=== PATIENT | male | born 1965 | race Caucasian/White ===

== ENCOUNTER 2017-01-04 20:55 | Emergency (ER) | payer BC ==
--- NOTE | 2017-01-04 21:28 | DIAGNOSTIC IMAGING REPORT ---
PROCEDURE: XR CHEST 1 VIEW INDICATION: CHEST PAIN TECHNIQUE: Portable AP view (2120 hours). COMPARISON: Compared to chest x-ray on 04/11/2015. FINDINGS: Allowing for suboptimal inspiration, lungs are clear. Heart and mediastinum are normal. Thorax is normal. IMPRESSION: 1. Negative chest.
--- NOTE | 2017-01-04 23:42 | DIAGNOSTIC IMAGING REPORT ---
PROCEDURE: US ABDOMEN ULTRASOUND-LIMITED INDICATION: Right abdominal pain. History of gallstones. TECHNIQUE: Bella scale and color Doppler sonographic images of the abdomen were obtained. COMPARISON: Compared to CT abdomen and pelvis on 04/11/2015. FINDINGS: Moderate distention of the gallbladder with biliary sludge and an 8 mm mobile gallstone. No evidence of gallbladder wall thickening. Common duct is normal (4 mm). Portions of the liver are seen with moderate fatty infiltration. Pancreas is obscured by bowel gas. Right kidney is normal. IMPRESSION: 1. Cholelithiasis (8 mm mobile gallstone) with moderate distention of the gallbladder associated biliary sludge. Findings suggest gallbladder dysfunction and/or cholecystitis (acute or chronic). 2. Moderate fatty infiltration of the liver. 3. Findings discussed with Dr. Eric Yan.
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
--- NOTE | 2017-01-05 01:53 | ED ORDER SUMMARY ---
..... Patient: JULIET SHETTY OrderSheet [facility] VisitID: [id number] [address] [place] [address] 51y, M Registration Date/Time: 01/04/2017 ORDER SHEET Weight: 89.8 kg (stated) Allergies: No Known Drug Allergy GENERAL ORDERS: Chest 1V Urgent (21:01/04/2017 Kalen BARON) (Ack 21:16 Aziza) (21:21 Skylarne R.N.) Manager Drug Safety (Continuous) (21:01/04/2017 Kalen BARON) (21:21 Skylarne R.N.) CBC w Diff Urgent (21:01/04/2017 Kalen BARON) (Ack 21:15 Aziza) (21:28 Skylarne R.N.) CMP Urgent (21:01/04/2017 Kalen BARON) (Ack 21:15 Aziza) (21:28 TJayne R.N.) UA-Culture if indicated Urgent (21:01/04/2017 Kalen BARON) (Ack 21:16 Aziza) (2:38 RCollier R.N.) PT with INR Urgent (21:01/04/2017 Kalen BARON) (Ack 21:16 Aziza) (21:28 Skylarne R.N.) PTT Urgent (21:01/04/2017 Kalen BARON) (Ack 21:16 Aziza) (21:28 TJayne R.N.) D-Dimer Urgent (21:01/04/2017 Kalen BARON) (Ack 21:16 Aziza) (21:28 BARTOLOayne R.N.) Amylase Urgent (21:01/04/2017 Kalen BARON) (Ack 21:16 Aziza) (21:28 BARTOLOayne R.N.) Lipase Urgent (21:01/04/2017 Kalen BARON) (Ack 21:16 Aziza) (21:28 Skylarne R.N.) CPK Urgent (21:01/04/2017 Kalen BARON) (Ack 21:16 Aziza) (21:28 Derrick R.N.) Troponin-I Urgent (21:09 01/04/2017 Kalen BARON) (Ack 21:16 Aziza) (21:28 Skylarne R.N.) BNP Urgent (21:09 01/04/2017 Kalen BARON) (Ack 21:16 Aziza) (21:28 Skylarne R.N.) Oxygen (2 L/min) (NC) (21:09 01/04/2017 Kalen BARON) (22:19 Víctors R.N.) EKG - ER Stat (21:09 01/04/2017 Kalen BARON) (21:12 Aziza) Pulse oximeter (21:09 01/04/2017 Kalen BARON) (21:21 Skylarne R.N.) NPO (21:36 01/04/2017 Kalen BARON) (22:18 JSanders R.N.) US Abdomen Limited (No) Urgent (21:36 01/04/2017 Kalen BARON) (Ack 21:40 Aziza) (22:17 MARIBELLradburn R.N.) Blood Culture (No) (N/A) Urgent (21:48 01/04/2017 Kalen BARON) (22:18 JSanders R.N.) (Ack 22:19 Aziza) Lactate, Serum Urgent (21:48 01/04/2017 Kalen BARON) (22:18 JSanders R.N.) (Ack 22:19 Aziza) CTA Thorax/Abdomen/Pelvis (No) (see report) Urgent (22:59 01/04/2017 Kalen BARON) (Ack 23:04 Aziza) (23:48 Kalen BARON) (Cancelled: Other23:48 Kalen BARON) CTA Thorax w Cont (No) (See report) Urgent (23:48 01/04/2017 Kalen BARON) (Ack 23:56 Aziza) (1:08 GUnger) CT Abd/Pel w Cont (No) (See report) Urgent (23:48 01/04/2017 Kalen BARON) (Ack 23:56 Aziza) (1:08 Lawrence) CBC w Diff Urgent (02:30 01/05/2017 Kalen BARON) (2:51 Ej R.NRonal) MEDICATION ORDERS: Aspirin PO 325 mg (NOW) (21:08 01/04/2017 Kalen BARON) (21:18 Derrick R.N.) IV FLUIDS: IV Saline Lock (21:09 01/04/2017 Kalen BARON) (21:28 Derrick R.N.) IV NS : initial bolus 500 mL (1000 mL/hr), then 125 mL/hr for 4h (NOW); Urgent (21:36 01/04/2017 Kalen BARON) (Ack 22:14 Ej R.N.) (22:18 Ej R.N.) Zosyn IV 3.375 gm/50mL (NOW) (00:24 01/05/2017 Kalen BARON) (Ack 0:50 Maru R.N.) (1:10 Derrick R.N.) ORDER SHEET NOTES: [Electronically signed by Kelly Shelton R.N. (05:56 01/05/2017)] [Electronically signed by Eric Yan MD (00:49 01/07/2017)] [Electronically locked/signed by Kelly Shelton R.N. (05:56 01/05/2017)]
--- NOTE | 2017-01-05 01:53 | ED ORDER SUMMARY ---
..... Patient: JULIET SHETTY OrderSheet [facility] VisitID: [id number] [address] [place] [address] 51y, M Registration Date/Time: 01/04/2017 ORDER SHEET Weight: 89.8 kg (stated) Allergies: No Known Drug Allergy GENERAL ORDERS: Chest 1V Urgent (21:01/04/2017 Kalen BARON) (Ack 21:16 Aziza) (21:21 Skylarne R.N.) Machinist Linotype (Continuous) (21:01/04/2017 Kalen BARON) (21:21 Skylarne R.N.) CBC w Diff Urgent (21:01/04/2017 Kalen BARON) (Ack 21:15 Aziza) (21:28 Skylarne R.N.) CMP Urgent (21:01/04/2017 Kalen BARON) (Ack 21:15 Aziza) (21:28 TJayne R.N.) UA-Culture if indicated Urgent (21:01/04/2017 Kalen BARON) (Ack 21:16 Aziza) (2:38 RCollier R.N.) PT with INR Urgent (21:01/04/2017 Kalen BARON) (Ack 21:16 Aziza) (21:28 Skylarne R.N.) PTT Urgent (21:01/04/2017 Kalen BARON) (Ack 21:16 Aziza) (21:28 TJayne R.N.) D-Dimer Urgent (21:01/04/2017 Kalen BARON) (Ack 21:16 Aziza) (21:28 BARTOLOayne R.N.) Amylase Urgent (21:01/04/2017 Kalen BARON) (Ack 21:16 Aziza) (21:28 BARTOLOayne R.N.) Lipase Urgent (21:01/04/2017 Kalen BARON) (Ack 21:16 Aziza) (21:28 Skylarne R.N.) CPK Urgent (21:01/04/2017 Kalen BARON) (Ack 21:16 Aziza) (21:28 Derrick R.N.) Troponin-I Urgent (21:09 01/04/2017 Kalen BARON) (Ack 21:16 Aziza) (21:28 Skylarne R.N.) BNP Urgent (21:09 01/04/2017 Kalen BARON) (Ack 21:16 Aziza) (21:28 Skylarne R.N.) Oxygen (2 L/min) (NC) (21:09 01/04/2017 Kalen BARON) (22:19 Víctors R.N.) EKG - ER Stat (21:09 01/04/2017 Kalen BARON) (21:12 Aziza) Pulse oximeter (21:09 01/04/2017 Kalen BARON) (21:21 Skylarne R.N.) NPO (21:36 01/04/2017 Kalen BARON) (22:18 JSanders R.N.) US Abdomen Limited (No) Urgent (21:36 01/04/2017 Kalen BARON) (Ack 21:40 Aziza) (22:17 MARIBELLradburn R.N.) Blood Culture (No) (N/A) Urgent (21:48 01/04/2017 Kalen BARON) (22:18 JSanders R.N.) (Ack 22:19 Aziza) Lactate, Serum Urgent (21:48 01/04/2017 Kalen BARON) (22:18 JSanders R.N.) (Ack 22:19 Aziza) CTA Thorax/Abdomen/Pelvis (No) (see report) Urgent (22:59 01/04/2017 Kalen BARON) (Ack 23:04 Aziza) (23:48 Kalen BARON) (Cancelled: Other23:48 Kalen BARON) CTA Thorax w Cont (No) (See report) Urgent (23:48 01/04/2017 Kalen BARON) (Ack 23:56 Aziza) (1:08 GUnger) CT Abd/Pel w Cont (No) (See report) Urgent (23:48 01/04/2017 Kalen BARON) (Ack 23:56 Aziza) (1:08 Lawrence) CBC w Diff Urgent (02:30 01/05/2017 Kalen BARON) (2:51 Ej R.NRonal) MEDICATION ORDERS: Aspirin PO 325 mg (NOW) (21:08 01/04/2017 Kalen BARON) (21:18 Derrick R.N.) IV FLUIDS: IV Saline Lock (21:09 01/04/2017 Kalen BARON) (21:28 Derrick R.N.) IV NS : initial bolus 500 mL (1000 mL/hr), then 125 mL/hr for 4h (NOW); Urgent (21:36 01/04/2017 Kalen BARON) (Ack 22:14 Ej R.N.) (22:18 Ej R.N.) Zosyn IV 3.375 gm/50mL (NOW) (00:24 01/05/2017 Kalen BARON) (Ack 0:50 Maru R.N.) (1:10 Derrick R.N.) ORDER SHEET NOTES: [Electronically signed by Kelly Shelton R.N. (05:56 01/05/2017)] [Electronically signed by Eric Yan MD (00:49 01/07/2017)] [Electronically locked/signed by Kelly Shelton R.N. (05:56 01/05/2017)]
--- NOTE | 2017-01-05 01:53 | ED NURSING NOTES ---
Clinical Report - Nurses [facility] [address] [place] [address] 01/04/2017 20:57 Patient: JULIET SHETTY TRIAGE Triage time 20:59. Acuity: LEVEL 3. Chief Complaint: CHEST PAIN and DISCOMFORT. No acute distress. --21:02 Deborah Day R.N. 20:59 01/04/17. BP: 139/107. HR: 57. RR: 16. O2 saturation: 97%. Temp: 98.1 F. Pain level now 8/10. --21:02 Deborah Day R.N. SEPSIS SCREEN: Sepsis Screen. Negative (no infection suspected/documented). --21:02 Deborah Day R.N. Weight: 89.8 kg stated. Height/Length: 66 inches Per Patient. BMI: 32. --21:02 Deborah Day R.N. Medications Ibuprofen Oral. --21:00 Deborah Day R.N. OxyCONTIN Oral. --21:00 Deborah Day R.N. Pantoprazole Sodium Oral. Zoloft Oral. --21:00 Deborah Day R.N. Allergies No Known Drug Allergy. --21:00 Deborah Day R.N. History Arrived by private vehicle. Historian: patient. Accompanied by family. Primary physician (Khan). Onset. (3 HOURS). ( recent hernia repair 4 days). 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 PAST MEDICAL HX: Immunizations: up-to-date. SOCIAL HX: Never smoker. Occasional alcohol use. No drug use. FALL RISK ASSESSMENT: Fall risk assessment completed. No fall risk identified. NUTRITIONAL RISK ASSESSMENT: The nutritional risk assessment revealed no deficiencies. FUNCTIONAL ASSESSMENT: Functional assessment: no impairments noted. LEARNING NEEDS ASSESSMENT: The learning needs assessment revealed no barriers. SKIN INTEGRITY ASSESSMENT: Skin integrity risk assessment completed. No skin integrity risk identified. --21:02 Deborah Day R.N. PROBLEMS: GERD. Hypertension. --21:00 Deborah Day R.N. ADDITIONAL SURGERIES: Hernia Repair. --21:00 Deborah Day R.N. Interventions ID band on patient. To room. --21: Deborah Day R.N. PHYSICAL ASSESSMENT 21:01/04/17. Ambulatory to room. GENERAL / NEURO / PSYCH: Alert. Oriented X 4. RESPIRATORY: Respirations not labored. Right lower and anterior chest wall tenderness. CVS: Capillary refill less than 2 seconds. GI / : The patient has had nausea. Abdomen soft. EXTREMITIES: No lower extremity edema. SKIN: Skin is warm and dry. --21:03 Deborah Day R.N. NURSING PROGRESS NOTES air sampling and monitoring, pulse oximeter and NIBP monitor placed on patient. Patient gowned. Patient ready for evaluation- chart flagged. --21: Deborah Day R.N. 21:01/04/17. Two patient identifiers checked. Call light placed in reach. Side rails up x 1. Bed placed in lowest position. Brakes of bed on. --21: Deborah Day R.N. 21:01/04/2017 Aspirin PO Tablets 325 mg given. Allergies verified and confirmed 5 rights. --: Deborah Day R.N. air sampling and monitoring, pulse oximeter and NIBP monitor placed on patient. --21: Deborah Day R.N. 21:01/04/17. Portable chest x-ray. --: Deborah Day R.N. :01/04/2017 Site #1 started via IV in the right forearm with an 20g angiocath, with aseptic technique and good blood return; one attempt. Blood drawn: rainbow set. Labeled in the presence of the patient and sent to the lab. Saline lock flushed with 10 mL saline (started by Dian BEYER). --: Deborah Day R.N. 22:01/04/2017 Started bag #1 1000 mL IV Fluids IV NS (Saline); bolus of 500 mL over 30 minute(s) then at 1000 mL/hr over 30 minute(s) via site #1 via IV pump. Allergies verified and confirmed 5 rights. IV patency established. IV site checked: no pain, redness, or swelling. IV flushed thoroughly pre- and post-medication administration. --22:18 Kelly Shelton R.N. 22:20 01/04/17. BP: 140/71 (regular adult cuff) taken on the left arm, while sitting. HR: 59. RR: 18. O2 saturation: 96% on nasal cannula at 2 liters/minute. Pain level now: 10/28. --22:20 Kelly Shelton R.N. 22:20 01/04/17. ( US here with patient). --22:20 Kelly Shelton R.N. 22:28 01/04/17. BP: 141/78. HR: 7. RR: 16. O2 saturation: 96%. --22:28 Deborah Day R.N. ( ultrasound complete). --22:55 Deborah Day R.N. 22:55 01/04/17. BP: 130/77. HR: 57. RR: 16. O2 saturation: 97%. --22:55 Deborah Day R.N. 23:01 01/04/2017 IV Fluids IV NS via IV site #1 Rate Changed: bag #1 decreased to 125 mL/hr via IV pump. IV patency established. IV site checked: no pain, redness, or swelling. IV flushed thoroughly. Confirmed 5 Rights (500ml BOLUS complete). --23:01 Shyla Soria R.N. 23:59 01/04/17. BP: 138/76. HR: 71. RR: 16. O2 saturation: 96%. --00:00 Deborah Day R.N. Patient returned from CT by stretcher with tech. --00:58 Shyla Soria R.N. 01:05 01/05/2017 Started 3.375 gm of Zosyn (Piperacillin Sod-Tazobactam So) IVPB in bag #1 50 mL; at 100 mL/hr over 30 minute(s) via site #1 via IV pump. Allergies verified and confirmed 5 rights. IV patency established. IV site checked: no pain, redness, or swelling. IV flushed thoroughly pre- and post-medication administration. --01:10 Deborah Day R.N. 01:24 01/05/17. BP: 177/81. HR: 74. RR: 18. O2 saturation: 97%. --01:25 Deborah Day R.N. 01:40 01/05/2017 Zosyn IVPB Discontinued: bag #1 completed. Total amount infused: 50 mL. IV patency established. IV site checked: no pain, redness, or swelling. IV flushed thoroughly. --01:40 Kelly Shelton R.N. ( brief report given to EFREN Treviño). --02:04 Deborah Day R.N. 02:31 01/05/17. ( Patient up to the restroom). --02:31 Kelly Shelton R.N. 02:32 01/05/2017 IV Fluids IV NS Discontinued: bag #1 completed. Total amount infused: 1000 mL. IV patency established. IV site checked: no pain, redness, or swelling. IV flushed thoroughly. --02:32 Kelly Shelton R.N. 02:35. Patient ID band checked for patient name and birthdate: patient confirmed urine collected with return of yellow-colored clear urine; sample sent to lab. Specimen labeled in the presence of the patient. --02:38 Shyla Soria R.N. Care transferred and report received (Deborah Sanchez RN). --03:04 Kelly Shelton R.N. 00:30 01/05/17. BP: 128/74 (regular adult cuff) taken on the left arm, while sitting. HR: 58. RR: 16. O2 saturation: 96% on room air. --03:53 Kelly Shelton R.N. 23:15 01/04/17. BP: 129/75 (regular adult cuff) taken on the left arm, while sitting. HR: 57. RR: 18. O2 saturation: 95%. --03:53 Kelly Shelton R.N. 23:45 01/04/17. BP: 138/76 (regular adult cuff) taken on the left arm, while sitting. HR: 56. --04:00 Kelly Shelton R.N. 02:30 01/05/17. BP: 150/83 (regular adult cuff) taken on the left arm, while sitting. HR: 61. O2 saturation: 96% on room air. --04:01 Kelly Shelton R.N. 02:45 01/05/17. BP: 144/85 (regular adult cuff) taken on the left arm, while sitting. HR: 63. O2 saturation: 96%. --04:02 Kelly Shelton R.N. 04:02 01/05/17. BP: 132/80 (regular adult cuff) taken on the left arm, while sitting. HR: 61. O2 saturation: 95% on room air. --04:02 Kelly Shelton R.N. late entry -. EKG time: (21:08 PM). EKG was performed by a tech and shown to the ED physician. --04:14 Ania Knight. DISPOSITION / DISCHARGE 04:11 01/05/2017 Site #[address] upon transfer; patent, no pain and no signs of infection or infiltration. Good blood return present; flushes easily. --04:11 Kelly Shelton R.N. 04:12 01/05/17. Transferred to [facility]. Summary of care provided to EMS. Transported via ambulance by EMS. Bed obtained and ready. Patient's personal items include: shirt, shoes, contacts and wallet, 04:Jan 05 2017; items were placed in belongings bag and transported with the patient. He did not have glasses, dentures or a hearing aid. --04:12 Kelly Shelton R.N. 04:07 01/05/17. BP: 140/83 (regular adult cuff) taken on the left arm, while sitting. HR: 92. RR: 18. O2 saturation: 93% on room air. Temp: 97.5 F (oral). Pain level now: 310. Additional comments: RLQ. --04:12 Kelly Shelton R.N. 04:22 01/05/17. Departure time: 04:Jan 05 2017. ( Report called to KAYLEEN Garcia at ). --04:22 Kelly Shelton R.N. Locked/Released at 01/05/2017 5:56 by Kelly Shelton R.N.
--- NOTE | 2017-01-05 06:14 | DIAGNOSTIC IMAGING REPORT ---
PROCEDURE: CTA THORAX WITH CONTRAST INDICATION: Chest pain. Elevated D-dimer (0.55). TECHNIQUE: 84 of Isovue 370 was injected intravenously and axial images were obtained of the entire thorax with 3D sagittal and coronal MIP reconstructions. Preliminary poor provided by Shae Ellington MD ([facility]). COMPARISON: Compared to chest x-ray and 01/04/2017. FINDINGS: There is minor basilar volume loss. Lungs are otherwise clear. Pulmonary vessels are normal and there is no evidence of pulmonary embolus. Heart and mediastinum are normal. Thoracic aorta is normal. Thorax is normal. IMPRESSION: 1. Mild basilar volume loss. 2. Otherwise negative CT pulmonary arteriogram. No evidence of pulmonary embolus. All CT scans at this facility use dose modulation, iterative reconstruction, and/or weight-based dosing when appropriate to reduce radiation dose to as low as reasonably achievable.
--- NOTE | 2017-01-05 06:14 | DIAGNOSTIC IMAGING REPORT ---
PROCEDURE: CTA THORAX WITH CONTRAST INDICATION: Chest pain. Elevated D-dimer (0.55). TECHNIQUE: 84 of Isovue 370 was injected intravenously and axial images were obtained of the entire thorax with 3D sagittal and coronal MIP reconstructions. Preliminary poor provided by Shae Ellington MD ([facility]). COMPARISON: Compared to chest x-ray and 01/04/2017. FINDINGS: There is minor basilar volume loss. Lungs are otherwise clear. Pulmonary vessels are normal and there is no evidence of pulmonary embolus. Heart and mediastinum are normal. Thoracic aorta is normal. Thorax is normal. IMPRESSION: 1. Mild basilar volume loss. 2. Otherwise negative CT pulmonary arteriogram. No evidence of pulmonary embolus. All CT scans at this facility use dose modulation, iterative reconstruction, and/or weight-based dosing when appropriate to reduce radiation dose to as low as reasonably achievable.
--- NOTE | 2017-01-05 06:23 | DIAGNOSTIC IMAGING REPORT ---
PROCEDURE: CT ABD/PELVIS WITH CONTRAST INDICATION: Right upper quadrant pain. Reported recent hernia surgery. TECHNIQUE: 125 ml of Isovue 300 were injected intravenously and axial images were obtained of the entire abdomen and pelvis with sagittal and coronal reformations. Preliminary poor provided by Shae Ellington MD ([facility]) . COMPARISON: Compared to abdominal ultrasound on 01/04/[address] abdomen pelvis on 04/11/2015. FINDINGS: ABDOMEN: Moderate distention of the gallbladder with mild gallbladder wall thickening and 2 small gallstones. Liver, spleen, pancreas, kidneys, and aorta are normal. Bowel pattern is normal, including appendix. There is subcutaneous emphysema and edema in the periumbilical region consistent with postoperative changes. PELVIS: There is soft tissue edema and subcutaneous emphysema in the right inguinal region consistent with recent hernia surgery. Pelvic structures are normal. No evidence of free fluid. IMPRESSION: 1. Cholelithiasis (two small gallstones). In addition, there is moderate distention of the gallbladder with gallbladder wall thickening consistent with cholecystitis (acute or chronic). 2. Postoperative changes of the periumbilical and right inguinal regions consistent with reported hernia surgery. 3. Otherwise negative abdomen and pelvis. All CT scans at this facility use dose modulation, iterative reconstruction, and/or weight-based dosing when appropriate to reduce radiation dose to as low as reasonably achievable.
--- NOTE | 2017-01-07 00:50 | ED MED RECONCILIATION SUMMARY ---
Patient: UJLIET SHETTY Medication Reconciliation Report [facility] VisitID: [id number] [address] [place] [address] 51y, M Registration Date/Time: 01/04/2017 Weight: 89.8 kg Height/Length: 66 in. BMI: 32.0 ALLERGIES: No Known Drug Allergy The patient's Home Medications are listed below: THE FOLLOWING MEDICATIONS NEED TO BE RECONCILED: Ibuprofen Oral OxyCONTIN Oral Pantoprazole Sodium Oral Zoloft Oral The source(s) of the original Home Medication information: Not obtained. The following Medications were given to the patient in the Emergency Department: Aspirin [PO] PO 325 mg, administered: 01/04/2017 9:18:00 PM IV NS IV Fluids bolus 500 mL over 30 minute(s), then 1000 mL/hr, administered: 01/04/2017 10:18:00 PM Zosyn [IVPB] IVPB bolus 0, then 3.375 gm 100 mL/hr, administered: 01/05/2017 1:05:00 AM The following Medications were prescribed to the patient: None.
--- NOTE | 2017-01-07 00:50 | ED DISCHARGE INSTRUCTIONS ---
Patient: JULIET SHETTY General Instructions [facility] VisitID: [id number] [address] [place] [address] 51y, M Registration Date/Time: 01/04/2017 Acute cholecystitis. (Electronically signed by Eric Yan MD 01/07/2017 0:49)
--- NOTE | 2017-01-07 00:50 | ED MAR SUMMARY ---
..... Medication Administration Record [facility] [address] [place] [address] Patient: JULIET SHETTY Visit ID: [id number] 51y, M Weight: 89.8 kg Height/Length: 66 in BMI: 32 ALLERGIES: No Known Drug Allergy Given 21:18 01/04/2017 Deborah Day R.N. Medication Administered: ASPIRIN [PO], Dose: 325 mg Tablets PO. Medication Ordered: Aspirin PO 325 mg (NOW). Start 22:18 01/04/2017 Kelly Shelton REfrain, Stop 02:32 01/05/2017 Kelly Shelton R.N. Medication Administered: IV NS (SALINE), Dose: IV Fluids over 30 minute(s), Rate: 1000 mL/hr, Bolus: 500 mL over 30 minute(s), Dispensed: 1000 mL bag, Site: #1 right forearm. Medication Ordered: IV NS : initial bolus 500 mL (1000 mL/hr), then 125 mL/hr for 4h (NOW); Urgent. Start 01:05 01/05/2017 Deborah Day R.N., Stop 01:40 01/05/2017 Kelly Shelton REfrain Medication Administered: ZOSYN [IVPB] (PIPERACILLIN SOD-TAZOBACTAM SO), Dose: 3.375 gm IVPB over 30 minute(s), Rate: 100 mL/hr, Dispensed: 50 mL bag, Site: #1 right forearm. Medication Ordered: Zosyn IV 3.375 gm/50mL (NOW).
--- NOTE | 2017-01-07 00:50 | ED MED RECONCILIATION SUMMARY ---
Patient: JULIET SHETTY Medication Reconciliation Report [facility] VisitID: [id number] [address] [place] [address] 51y, M Registration Date/Time: 01/04/2017 Weight: 89.8 kg Height/Length: 66 in. BMI: 32.0 ALLERGIES: No Known Drug Allergy The patient's Home Medications are listed below: THE FOLLOWING MEDICATIONS NEED TO BE RECONCILED: Ibuprofen Oral OxyCONTIN Oral Pantoprazole Sodium Oral Zoloft Oral The source(s) of the original Home Medication information: Not obtained. The following Medications were given to the patient in the Emergency Department: Aspirin [PO] PO 325 mg, administered: 01/04/2017 9:18:00 PM IV NS IV Fluids bolus 500 mL over 30 minute(s), then 1000 mL/hr, administered: 01/04/2017 10:18:00 PM Zosyn [IVPB] IVPB bolus 0, then 3.375 gm 100 mL/hr, administered: 01/05/2017 1:05:00 AM The following Medications were prescribed to the patient: None.
--- NOTE | 2017-01-07 00:50 | ED MAR SUMMARY ---
..... Medication Administration Record [facility] [address] [place] [address] Patient: JULIET SHETTY Visit ID: [id number] 51y, M Weight: 89.8 kg Height/Length: 66 in BMI: 32 ALLERGIES: No Known Drug Allergy Given 21:18 01/04/2017 Deborah Day R.N. Medication Administered: ASPIRIN [PO], Dose: 325 mg Tablets PO. Medication Ordered: Aspirin PO 325 mg (NOW). Start 22:18 01/04/2017 Kelly Shelton REfrain, Stop 02:32 01/05/2017 Kelly Shelton R.N. Medication Administered: IV NS (SALINE), Dose: IV Fluids over 30 minute(s), Rate: 1000 mL/hr, Bolus: 500 mL over 30 minute(s), Dispensed: 1000 mL bag, Site: #1 right forearm. Medication Ordered: IV NS : initial bolus 500 mL (1000 mL/hr), then 125 mL/hr for 4h (NOW); Urgent. Start 01:05 01/05/2017 Deborah Day R.N., Stop 01:40 01/05/2017 Kelly Shelton REfrain Medication Administered: ZOSYN [IVPB] (PIPERACILLIN SOD-TAZOBACTAM SO), Dose: 3.375 gm IVPB over 30 minute(s), Rate: 100 mL/hr, Dispensed: 50 mL bag, Site: #1 right forearm. Medication Ordered: Zosyn IV 3.375 gm/50mL (NOW).
--- NOTE | 2017-01-07 00:50 | ED DISCHARGE INSTRUCTIONS ---
Patient: JULIET SHETTY General Instructions [facility] VisitID: [id number] [address] [place] [address] 51y, M Registration Date/Time: 01/04/2017 Acute cholecystitis. (Electronically signed by Eric Yan MD 01/07/2017 0:49)
== END 2017-01-05 04:22 | disposition short-term general hospital (02) ==
LOC: ED SRH 20:55
DX: K81.0 Acute cholecystitis (principal); R11.0 Nausea; R19.7 Diarrhea, unspecified; R50.9 Fever, unspecified
CPT/HCPCS: 90004; 90065; 90074; 90100; 90616; 91320; 91556; 92031; 92235; 92530; 92610; 94001; 94060; 95059